=== PATIENT | female | born 1970 | race American Indian/Alaskan Native ===

== ENCOUNTER 2020-02-03 16:54 | Emergency (ER) | payer OTHER ==
[2020-02-03 17:19] VITALS: BP 124/73
--- NOTE | 2020-02-03 17:21 | Emergency Department Report ---
ED General Adult HPI - General Chief complaint: Extremity Injury, Lower Stated complaint: ANKLE RT INJURY Time Seen by Provider: 02/03/20 17:10 Source: patient Mode of arrival: Ambulatory Limitations: No Limitations, Physical Limitation - History of Present Illness Initial comments: 49-year-old -Thai female patient presents with complaints of right ankle pain after an inversion twist injury today. She denies any numbness/tingling/weakness in her ankle or foot. She rates her pain as a pain as a 8/10 in severity and states the pain worsens with movement, palpation, and ambulation. - Related Data Previous Rx's Medication Instructions Recorded Last Taken Type Diclofenac Sodium 50 mg PO TID PRN #21 tablet. 02/03/20 Unknown Rx Allergies Allergy/AdvReac Type Severity Reaction Status Date / Time bacitracin Allergy Rash Verified 02/03/20 17:17 ED Review of Systems ROS: Stated complaint: ANKLE RT INJURY Other details as noted in HPI Constitutional: denies: malaise Skin: denies: change in color Neurological: abnormal gait. denies: numbness, paresthesias ED Past Medical Hx - Past Medical History Previous Medical History?: Yes - Surgical History Past Surgical History?: No Additional Surgical History: TUBAL LIGATION, cyst removal of off right ovalry - Medications Home Medications: Home Medications Medication Instructions Recorded Confirmed Last Taken Type Diclofenac Sodium 50 mg PO TID PRN #21 tablet. 02/03/20 Unknown Rx ED Physical Exam - General Limitations: No Limitations, Physical Limitation General appearance: alert, in no apparent distress - Head Head exam: Present: atraumatic, normocephalic - Eye Eye exam: Absent: scleral icterus - Respiratory Respiratory exam: Absent: respiratory distress - Cardiovascular Cardiovascular Exam: Present: regular rate - Expanded Lower Extremity Exam Right Ankle exam: Present: tenderness. Absent: swelling, abrasion, ecchymosis, deformity, crepidus, dislocation, erythema Neuro vascular tendon exam: Present: no vascular compromise. Absent: pulse deficit Gait: Positive: antalgic - Neurological Exam Neurological exam: Present: alert, oriented X3 - Psychiatric Psychiatric exam: Present: normal affect, normal mood - Skin Skin exam: Present: warm, dry, intact, normal color. Absent: rash, erythema, ecchymosis ED Course Vital Signs 02/03/20 17:17 Temperature 98 F Pulse Rate 94 H Respiratory 16 Rate Blood Pressure 124/73 [Right] O2 Sat by Pulse 100 Oximetry ED Medical Decision Making - Radiology Data Radiology results: report reviewed Four views of the ankle were obtained in the AP, lateral, and obliques. FINDINGS: There is no acute fracture, dislocation, or subluxation. There is no joint effusion or soft tissue swelling. The tibial plafond, ankle mortise, and talar dome are intact. IMPRESSION: No acute radiographic abnormality. - Medical Decision Making 49-year-old -Thai female patient presents with complaints of right ankle pain after an inversion twist injury today. She denies any numbness/tingling/weakness in her ankle or foot. She rates her pain as a pain as a 8/10 in severity and states the pain worsens with movement, palpation, and ambulation. X-ray is negative for any fracture. Patient placed in Ye wrap and provided with crutches. Recommend rice and NSAIDs with follow-up with orthopedics as needed. Return precautions were discussed in detail with patient who verbalizes understanding. Critical care attestation.: If time is entered above; I have spent that time in minutes in the direct care of this critically ill patient, excluding procedure time. ED Disposition Clinical Impression: Right ankle sprain Qualifiers: Encounter type: initial encounter Involved ligament of ankle: other ligament Qualified Code(s): S93.491A - Sprain of other ligament of right ankle, initial encounter Disposition: TO HOME OR SELFCARE Is pt being admited?: No Condition: Stable Instructions: Ankle Sprain Prescriptions: Diclofenac Sodium 50 mg PO TID PRN #21 tablet.dr SANDRA Reason: pain Referrals: MODE KEITH MD [Staff Physician] - 3-5 Days Forms: Work/School Release Form(ED)
--- NOTE | 2020-02-03 17:50 | XRay Report ---
CLINICAL DATA: paina fter inversion injury TECHNICAL DATA: Four views of the ankle were obtained in the AP, lateral, and obliques. FINDINGS: There is no acute fracture, dislocation, or subluxation. There is no joint effusion or soft tissue sw elling. The tibial plafond, ankle mortise, and talar dome are intact. IMPRESSION: No acute radiographic abnormality. Signer Name: Reddy Meraz MD Signed: 02/03/2020 5:45 PM Workstation Name: [id number]
== END 2020-02-03 19:28 | disposition home or self-care (01) ==
LOC: ED 16:54
DX: S93.491A Sprain of other ligament of right ankle, initial encounter (principal); Z98.51 Tubal ligation status; Z88.6 Allergy status to analgesic agent; X58.XXXA Exposure to other specified factors, initial encounter; Y93.89 Activity, other specified; Y92.89 Other specified places as the place of occurrence of the external cause; Y99.8 Other external cause status